=== PATIENT | male | born 1980 | race Caucasian/White ===

== ENCOUNTER 2018-08-28 20:30 | Emergency (ER) | payer OTHER ==
[2018-08-28 20:54] VITALS: TEMP 98.1
--- NOTE | 2018-08-28 21:22 | ED ---
Back Pain HPI - General Chief Complaint: Back Pain/Injury Stated Complaint: back pain Time Seen by Provider: 08/28/18 21:22 Source: patient Limitations: no limitations - History of Present Illness Initial Comments: Gabriel is a 38-year-old male with no significant past medical history who presents to the emergency department today for evaluation of low back pain. Patient reports that on Monday morning he got to work and upon stepping out of his car he twisted funny and felt pain in his lower back. He reports that since that time he's been applying ice and taking 2-3 Motrin daily which helped but the pain has persisted so he came to the ER for evaluation. Patient states he's been evaluated for back pain in the past, he had an MRI and was told that he had bulging disks in the past and did get injections which resolved his symptoms previously however he currently has no medical insurance and has not been able to follow-up with the physician who did that in the past. Patient denies any other trauma. He denies any loss of bowel or bladder continence, any urinary retention or constipation, he denies any change in sensation of the bilateral lower extremities, he denies any weakness in the lower surety's, he denies any saddle anesthesia. He reports that the pain is a constant aching in his back is worse with any twisting. He denies other complaints. - Related Data Home Medications Medication Instructions Recorded Confirmed Fluticasone Nasal [place] [Flonase 1 spr EA NOSTRIL DAILY PRN 08/28/18 08/28/18 Nasal [place]] Ibuprofen [Advil] 400 mg PO Q8HR PRN 08/28/18 08/28/18 Previous Rx's Medication Instructions Recorded Methocarbamol [Robaxin-750] 750 mg PO TID #30 tablet 08/28/18 Allergies Allergy/AdvReac Type Severity Reaction Status Date / Time No Known Allergies Allergy Verified 08/28/18 21:05 Review of Systems ROS Statement: Those systems with pertinent positive or pertinent negative responses have been documented in the HPI. ROS Other: All systems not noted in ROS Statement are negative. Past Medical History Past Medical History: No Reported History History of Any Multi-Drug Resistant Organisms: MRSA Date of last positivie culture/infection: 2013 MDRO Source:: face Past Surgical History: No Surgical Hx Reported Past Psychological History: No Psychological Hx Reported Smoking Status: Current every day smoker Past Alcohol Use History: None Reported Past Drug Use History: None Reported General Exam - General Exam Comments Initial Comments: Physical Exam GENERAL: Patient is well-developed and well-nourished. Patient is nontoxic and well- hydrated and is in no distress. HENT: Normocephalic, Atraumatic. EYES: PERRL, EOMI PULMONARY: Unlabored respirations. No audible rales rhonchi or wheezing was noted. CARDIOVASCULAR: There is a regular rate and rhythm without any murmurs gallops or rubs. ABDOMEN: Soft and nontender with normal bowel sounds. SKIN: Superficial skin irritation over the lumbar spine consistent with thermal injury from direct application of ice pack : Deferred NEUROLOGIC: Patient is alert and oriented x3. Moving all extremities spontaneously Normal patellar reflexes bilaterally Normal sensation of bilateral lower extremities Normal strength of bilateral lower extremities MUSCULOSKELETAL: Normal extremities with adequate strength and full range of motion. No lower extremity swelling or edema. No calf tenderness. PSYCHIATRIC: Normal psychiatric evaluation. Limitations: no limitations Limitations: no limitations Course Vital Signs 08/28/18 20:49 Temperature 98.1 F Pulse Rate 74 Respiratory 18 Rate Blood Pressure 126/82 O2 Sat by Pulse 99 Oximetry Medical Decision Making - Medical Decision Making Patient with persistent back pain since a twisting injury on Monday, pain improves with Motrin worsens with twisting No red flag symptoms Physical exam unremarkable, neurologically intact in the bilateral lower extremities with good strength and sensation, normal reflexes, normal gait Physical exam does reveal some thermal injury to the skin of the lumbar spine, patient was advised to apply an ice pack over his sweatshirt or a towel never directly on the skin, never for more than 15 minutes consecutively Patient was treated with IM medications, prescribed Robaxin and advised to increase his Motrin 2 up to 800 mg 3 times daily. Return parameters were discussed, all questions pertaining to care were answered and patient was discharged home in stable condition. Disposition Clinical Impression: Strain of lumbar region Disposition: HOME SELF-CARE Instructions: Acute Low Back Pain (ED) Prescriptions: Methocarbamol [Robaxin-750] 750 mg PO TID #30 tablet Is patient prescribed a controlled substance at d/c from ED?: No Referrals: Isaias Hubbard DO [Primary Care Provider] - 1-2 days
[2018-08-28] MEDS ORDERED: KETOROLAC 30 MG/ML 1 ML VIAL IM STA (21:41)
[2018-08-28] MEDS ORDERED: ORPHENADRINE 30 MG/ML 2 ML VIAL IM STA (21:41)
[2018-08-28 22:02] VITALS: BP 126/69; PULSE 70; RESP 16
== END 2018-08-28 22:00 | disposition home or self-care (01) ==
LOC: EC 20:30
DX: S39.012A Strain of muscle, fascia and tendon of lower back, initial encounter (principal); F17.200 Nicotine dependence, unspecified, uncomplicated; Z86.14 Personal history of Methicillin resistant Staphylococcus aureus infection; X50.1XXA Overexertion from prolonged static or awkward postures, initial encounter; Y92.810 Car as the place of occurrence of the external cause
CPT/HCPCS: 99283; 96372 ×2; J2360; J1885